=== PATIENT | female | born 1980 | race African-American/Black ===

== ENCOUNTER 2024-12-31 14:51 | Inpatient (IN) | payer OTHER ==
[~2024-12-31] VITALS: Ht 154.9 cm; Wt 61.0 kg
[2024-12-31] MEDS ORDERED: FLUC150T48 PO (16:52)
[2024-12-31 19:31] LABS: GLUCOMETER DEV NAME(LOC) ER.7; GLUCOSE,POINT OF CARE 140 MG/DL (70-110)
[2024-12-31] MEDS: SODIUM CHLORIDE 0.9% 1,000 ML IV ONE (19:49)
[2024-12-31] MEDS ORDERED: IBUP-1492 PO (19:57)
[2024-12-31 20:12] LABS: BASOPHILS % (AUTO) 0.1 % (0.0-2.0); EOSINOPHILS % (AUTO) 0 % (1.0-6.0); HEMATOCRIT 48.6 % (36-46); HEMOGLOBIN 15.9 g/dL (12.0-16.0); LYMPHOCYTES # (AUTO) 2.1 K/uL (1.0-4.8); MEAN CORPUSCULAR HEMOGLOBIN 28.3 pg (26.0-34.0); MEAN CORPUSCULAR HGB CONC 32.8 G/dL (31.0-37.0); MEAN CORPUSCULAR VOLUME 87 fL (80-100); MONOCYTES # (AUTO) 1.8 K/uL (0.1-1.0); MONOCYTES % (AUTO) 12.8 % (2.0-9.0); NEUTROPHILS # (AUTO) 9.9 K/uL (1.8-7.7); NEUTROPHILS % (AUTO) 72.1 % (40.0-70.0); PLATELET COUNT (AUTO) 304 K/uL (150-450); RED BLOOD CELL COUNT(AUTO) 5.61 MIL/uL (4.00-5.20); RED CELL DISTRIBUTION WIDTH 13.6 % (11.5-14.5); WHITE BLOOD COUNT (AUTO) 13.7 K/uL (4.5-11.0)
[2024-12-31 20:21] LABS: ALCOHOL, BLOOD (SERUM) < 3 mg/dL (0-10); COVID AG,FIA SOURCE NASAL SWAB
[2024-12-31 20:26] LABS: ANION GAP 16 mmol/L (8-16); CALCIUM, TOTAL 10.2 mg/dL (8.8-10.5); CARBON DIOXIDE 25 mmol/L (22-29); CHLORIDE 110 mmol/L (98-107); CREATININE 1.34 mg/dL (0.60-1.30); GLOMERULAR FILTR. RATE CALC 52 mL/min (>60); GLUCOSE,RANDOM 156 mg/dL (70-110); POTASSIUM 3.7 mmol/L (3.5-5.1); SODIUM SERUM 151 mmol/L (136-145); UREA NITROGEN, BLOOD 41 mg/dL (7-18)
[2024-12-31 20:40] LABS: SARS-COV2 (COVID) ANTIGEN,FIA Negative (Negative)
[2024-12-31] MEDS ORDERED: IPRATROPIUM BROMIDE 0.5 MG/2.5 ML NEB SOLUTION NEB PRN (21:00)
[2024-12-31] MEDS ORDERED: ACETAMINOPHEN 325 MG TABLET PO PRN (21:00)
[2024-12-31] MEDS ORDERED: ALBUTEROL SULFATE 2.5 MG/0.5 ML NEB SOLUTION NEB PRN (21:00)
[2024-12-31] MEDS ORDERED: ZOLPIDEM TARTRATE 5 MG TABLET PO PRN (21:00)
[2024-12-31] MEDS ORDERED: ONDANSETRON HCL 4 MG/2 ML VIAL IVP PRN (21:00)
[2024-12-31] MEDS ORDERED: BISACODYL 10 MG RECTAL RECTAL SUPPOSITORY PR PRN (21:00)
[2024-12-31] MEDS ORDERED: MAGNESIUM HYDROXIDE SUSPENSION 30 ML UDCUP PO PRN (21:00)
[2024-12-31] MEDS: DEXTROSE 5%-0.45% SODIUM CHL 1,000 ML IV ONE (21:12)
[2024-12-31] MEDS: HEPARIN SODIUM,PORCINE 5,000 UNITS/ML VIAL SQ SCH (23:26)
[2025-01-01] VITALS: BP 134/91; PULSE 132; RESP 22; TEMP 98.3; O2SAT 100
[2025-01-01 04:00] VITALS: BP 136/96; PULSE 144; RESP 21; TEMP 97.5; O2SAT 97
[2025-01-01 07:31] VITALS: BP 117/68; PULSE 144; RESP 18
[2025-01-01] MEDS: PANTOPRAZOLE SODIUM 40 MG DR TABLET PO SCH (08:12)
[2025-01-01 12:48] VITALS: BP 121/95; PULSE 138; RESP 18
[2025-01-01] MEDS: DEXTROSE 5%-WATER 1,000 ML IV ONE (13:47)
[2025-01-01] MEDS: LORazepam 2 MG/ML VIAL IVP PRN (13:48)
[2025-01-01 15:45] VITALS: BP 127/86; PULSE 119; RESP 19; TEMP 98.4; O2SAT 98
[2025-01-01 15:57] LABS: BASOPHILS % (AUTO) 0.2 % (0.0-2.0); EOSINOPHILS % (AUTO) 0.2 % (1.0-6.0); HEMATOCRIT 44.1 % (36-46); HEMOGLOBIN 14.5 g/dL (12.0-16.0); LYMPHOCYTES # (AUTO) 1.7 K/uL (1.0-4.8); LYMPHOCYTES % (AUTO) 17.6 % (22.0-44.0); MEAN CORPUSCULAR HEMOGLOBIN 28.6 pg (26.0-34.0); MEAN CORPUSCULAR HGB CONC 32.9 G/dL (31.0-37.0); MEAN CORPUSCULAR VOLUME 87 fL (80-100); MONOCYTES # (AUTO) 1.2 K/uL (0.1-1.0); NEUTROPHILS # (AUTO) 6.6 K/uL (1.8-7.7); PLATELET COUNT (AUTO) 248 K/uL (150-450); RED BLOOD CELL COUNT(AUTO) 5.09 MIL/uL (4.00-5.20); RED CELL DISTRIBUTION WIDTH 13.6 % (11.5-14.5); WHITE BLOOD COUNT (AUTO) 9.6 K/uL (4.5-11.0)
[2025-01-01] MEDS: THIAMINE 100 MG/ML 2 ML VIAL IVP SCH (16:10)
[2025-01-01 16:12] LABS: TROPONIN I-HIGH SENSITIVITY 28 ng/L (<51)
[2025-01-01 16:14] LABS: ANION GAP 11 mmol/L (8-16); CALCIUM, TOTAL 9.2 mg/dL (8.8-10.5); CARBON DIOXIDE 28 mmol/L (22-29); CHLORIDE 117 mmol/L (98-107); CREATININE 0.68 mg/dL (0.60-1.30); GLOMERULAR FILTR. RATE CALC > 60 mL/min (>60); GLUCOSE,RANDOM 143 mg/dL (70-110); POTASSIUM 3.3 mmol/L (3.5-5.1); SODIUM SERUM 156 mmol/L (136-145); UREA NITROGEN, BLOOD 22 mg/dL (7-18)
[2025-01-01] MEDS: POTASSIUM CHL 10 MEQ/WATER 50 ML IV SCH (17:56)
[2025-01-01 19:18] LABS: APPEARANCE,URINE CLEAR (CLEAR); BILIRUBIN,URINE NEGATIVE (NEGATIVE); COLOR,URINE LIGHT YELLOW (YELLOW); GLUCOSE, URINE (UA) NEGATIVE (NEGATIVE); LEUKOCYTE ESTERASE ,URINE NEGATIVE (NEGATIVE); NITRATE,URINE NEGATIVE (NEGATIVE); OCCULT BLOOD,URINE NEGATIVE (NEGATIVE); PH,URINE 5.5 (5.0-8.0); PH,URINE DRUG SCREEN 5.5 (5.0-8.0); PROTEIN,URINE 30-70 mg/dL (NEGATIVE); SPECIFIC GRAVITIY, URINE 1.019 (1.003-1.030); UROBILINOGEN,URINE <=1.0 mg/dL (<=1.0)
[2025-01-01 19:43] LABS: ALCOHOL, URINE DRUG SCREEN NEGATIVE (NEGATIVE); AMPHET/METH SCREEN,URINE NEGATIVE (NEGATIVE); BARBITURATE SCREEN, URINE NEGATIVE (NEGATIVE); BENZODIAZEPINES SCREEN,URINE NEGATIVE (NEGATIVE); CANNABINOID SCREEN,URINE NEGATIVE (NEGATIVE); COCAINE SCREEN,URINE NEGATIVE (NEGATIVE); METHADONE SCREEN, URINE NEGATIVE (NEGATIVE); OPIATE SCREEN,URINE NEGATIVE (NEGATIVE); PHENCYCLIDINE SCREEN,URINE NEGATIVE (NEGATIVE)
[2025-01-01 20:00] VITALS: BP 109/78; PULSE 118; RESP 18; TEMP 98.2; O2SAT 98
[2025-01-02] VITALS: BP 117/102; PULSE 126; RESP 18; O2SAT 97
[2025-01-02 03:34] VITALS: BP 115/98; PULSE 125; RESP 19; TEMP 97.9; O2SAT 98
[2025-01-02 07:38] VITALS: BP 116/78; PULSE 123; RESP 18; TEMP 97.9; O2SAT 95
[2025-01-02 10:06] LABS: ANION GAP 12 mmol/L (8-16); CALCIUM, TOTAL 9.3 mg/dL (8.8-10.5); CARBON DIOXIDE 30 mmol/L (22-29); CHLORIDE 115 mmol/L (98-107); CREATININE 0.73 mg/dL (0.60-1.30); GLOMERULAR FILTR. RATE CALC > 60 mL/min (>60); GLUCOSE,RANDOM 133 mg/dL (70-110); POTASSIUM 3.2 mmol/L (3.5-5.1); SODIUM SERUM 157 mmol/L (136-145); UREA NITROGEN, BLOOD 19 mg/dL (7-18)
[2025-01-02 11:02] LABS: BASOPHILS % (AUTO) 0.3 % (0.0-2.0); EOSINOPHILS % (AUTO) 0.2 % (1.0-6.0); HEMOGLOBIN 14.3 g/dL (12.0-16.0); LYMPHOCYTES # (AUTO) 1.6 K/uL (1.0-4.8); LYMPHOCYTES % (AUTO) 18.2 % (22.0-44.0); MEAN CORPUSCULAR HEMOGLOBIN 27.9 pg (26.0-34.0); MEAN CORPUSCULAR HGB CONC 32.5 G/dL (31.0-37.0); MEAN CORPUSCULAR VOLUME 86 fL (80-100); MONOCYTES # (AUTO) 1.1 K/uL (0.1-1.0); MONOCYTES % (AUTO) 12.3 % (2.0-9.0); PLATELET COUNT (AUTO) 257 K/uL (150-450); RED BLOOD CELL COUNT(AUTO) 5.13 MIL/uL (4.00-5.20); RED CELL DISTRIBUTION WIDTH 13.7 % (11.5-14.5); WHITE BLOOD COUNT (AUTO) 8.7 K/uL (4.5-11.0)
[2025-01-02] MEDS: POTASSIUM CHL 10 MEQ/WATER 50 ML IV PRN (11:09)
[2025-01-02] MEDS: DEXTROSE 5%-WATER 1,000 ML IV ONE (11:09)
[2025-01-02 11:17] VITALS: BP 116/86; PULSE 114; RESP 18; TEMP 97.6; O2SAT 97
[2025-01-02] MEDS: RisperiDONE 0.5 MG TABLET PO SCH (12:16)
[2025-01-02] MEDS: DiphenhydrAMINE HCL 50 MG/ML VIAL IM ONE (13:05)
[2025-01-02] MEDS: HALOPERIDOL LACTATE 5 MG/ML VIAL IM ONE (13:06)
[2025-01-02] MEDS: LORazepam 2 MG/ML VIAL IM ONE (13:06)
[2025-01-02 15:35] VITALS: BP 108/89; PULSE 117; RESP 18; TEMP 98.8; O2SAT 98
[2025-01-02 20:00] VITALS: BP 120/72; PULSE 122; RESP 18; TEMP 98.6; O2SAT 98
[2025-01-03] VITALS (7 sets, daily range): BP systolic 118–130; BP diastolic 75–100; PULSE 91–121; RESP 17–19; TEMP 97.5–98.4; O2SAT 97–100
[2025-01-03 06:32] LABS: BASOPHILS % (AUTO) 0.2 % (0.0-2.0); EOSINOPHILS % (AUTO) 0.6 % (1.0-6.0); HEMATOCRIT 43.7 % (36-46); HEMOGLOBIN 14.4 g/dL (12.0-16.0); LYMPHOCYTES # (AUTO) 2.4 K/uL (1.0-4.8); LYMPHOCYTES % (AUTO) 26.8 % (22.0-44.0); MEAN CORPUSCULAR HEMOGLOBIN 28.4 pg (26.0-34.0); MEAN CORPUSCULAR VOLUME 86 fL (80-100); MONOCYTES % (AUTO) 11.8 % (2.0-9.0); NEUTROPHILS # (AUTO) 5.3 K/uL (1.8-7.7); NEUTROPHILS % (AUTO) 60.6 % (40.0-70.0); PLATELET COUNT (AUTO) 229 K/uL (150-450); RED BLOOD CELL COUNT(AUTO) 5.08 MIL/uL (4.00-5.20); RED CELL DISTRIBUTION WIDTH 13.6 % (11.5-14.5); WHITE BLOOD COUNT (AUTO) 8.8 K/uL (4.5-11.0)
[2025-01-03 09:54] LABS: CHLORIDE 115 mmol/L (98-107); POTASSIUM 4.1 mmol/L (3.5-5.1); SODIUM SERUM 156 mmol/L (136-145)
[2025-01-03 10:02] LABS: ANION GAP 11 mmol/L (8-16); CALCIUM, TOTAL 9.7 mg/dL (8.8-10.5); CARBON DIOXIDE 30 mmol/L (22-29); CREATININE 0.68 mg/dL (0.60-1.30); GLOMERULAR FILTR. RATE CALC > 60 mL/min (>60); GLUCOSE,RANDOM 119 mg/dL (70-110); UREA NITROGEN, BLOOD 16 mg/dL (7-18)
[2025-01-03] MEDS: DEXTROSE 5%-WATER 1,000 ML IV ONE (11:24)
[2025-01-04 04:02] VITALS: BP 124/90; PULSE 108; RESP 18; TEMP 98.1; O2SAT 97
[2025-01-04 08:15] VITALS: BP 129/90; PULSE 114; RESP 18; TEMP 98.8; O2SAT 100
[2025-01-04 10:56] VITALS: BP 113/84; PULSE 115; RESP 18; TEMP 98; O2SAT 96
[2025-01-04] MEDS: DEXTROSE 5%-WATER 2,000 ML IV ONE (12:09)
[2025-01-04 15:15] VITALS: BP 108/73; PULSE 108; RESP 19; TEMP 98.6; O2SAT 97
[2025-01-04 20:00] VITALS: BP 116/76; PULSE 134; RESP 19; TEMP 97.9; O2SAT 97
[2025-01-04] MEDS ORDERED: 0.9% SODIUM CHLORIDE 10 ML SYRINGE IVP PRN (22:30)
[2025-01-04] MEDS ORDERED: DEXTROSE 5%-LACTATED RINGERS 1,000 ML IV SCH (23:00)
[2025-01-04 23:34] LABS: BASOPHILS % (AUTO) 0.3 % (0.0-2.0); EOSINOPHILS % (AUTO) 1.6 % (1.0-6.0); HEMATOCRIT 44.2 % (36-46); HEMOGLOBIN 14.3 g/dL (12.0-16.0); LYMPHOCYTES # (AUTO) 2.3 K/uL (1.0-4.8); LYMPHOCYTES % (AUTO) 30.5 % (22.0-44.0); MEAN CORPUSCULAR HEMOGLOBIN 27.8 pg (26.0-34.0); MEAN CORPUSCULAR HGB CONC 32.5 G/dL (31.0-37.0); MEAN CORPUSCULAR VOLUME 86 fL (80-100); MONOCYTES # (AUTO) 0.7 K/uL (0.1-1.0); MONOCYTES % (AUTO) 9.7 % (2.0-9.0); NEUTROPHILS # (AUTO) 4.4 K/uL (1.8-7.7); NEUTROPHILS % (AUTO) 57.9 % (40.0-70.0); PLATELET COUNT (AUTO) 226 K/uL (150-450); RED BLOOD CELL COUNT(AUTO) 5.16 MIL/uL (4.00-5.20); RED CELL DISTRIBUTION WIDTH 13.5 % (11.5-14.5); WHITE BLOOD COUNT (AUTO) 7.6 K/uL (4.5-11.0)
[2025-01-04 23:37] LABS: ANION GAP 12 mmol/L (8-16); CALCIUM, TOTAL 9.8 mg/dL (8.8-10.5); CARBON DIOXIDE 31 mmol/L (22-29); CHLORIDE 106 mmol/L (98-107); CREATININE 0.67 mg/dL (0.60-1.30); GLOMERULAR FILTR. RATE CALC > 60 mL/min (>60); GLUCOSE,RANDOM 119 mg/dL (70-110); POTASSIUM 3.5 mmol/L (3.5-5.1); SODIUM SERUM 149 mmol/L (136-145); UREA NITROGEN, BLOOD 14 mg/dL (7-18)
[2025-01-04 23:41] LABS: ALANINE AMINOTRANSFERASE 36 U/L (12-78); ALBUMIN 3.6 g/dL (3.4-5.0); ALKALINE PHOSPHATASE 69 U/L (46-116); ASPARTATE AMINOTRANSFERASE 25 U/L (15-37); BILIRUBIN,TOTAL 0.8 mg/dL (0.1-1.0); LACTATE DEHYDROGENASE 236 U/L (81-234); TOTAL PROTEIN, SERUM 7.5 g/dL (6.4-8.2)
[2025-01-04 23:48] LABS: LACTIC ACID 2.3 mmol/L (0.4-2.0)
[2025-01-05] MEDS: CefTRIAXone 1 GM/DEXTROSE 50 ML IV ONE (00:04)
[2025-01-05] MEDS: SODIUM CHLORIDE 0.9% 1,700 ML IV ONE (00:05)
[2025-01-05 00:26] VITALS: BP 108/91; PULSE 103; RESP 19; TEMP 98.2; O2SAT 98
[2025-01-05] MEDS: SODIUM CHLORIDE 0.9% 250 ML IV ONE (02:37)
[2025-01-05 04:00] VITALS: BP 98/56; PULSE 113; RESP 18; TEMP 97.9; O2SAT 100
[2025-01-05 07:22] LABS: BASOPHILS % (AUTO) 0.2 % (0.0-2.0); EOSINOPHILS % (AUTO) 2.8 % (1.0-6.0); HEMATOCRIT 39.9 % (36-46); HEMOGLOBIN 13.3 g/dL (12.0-16.0); LYMPHOCYTES # (AUTO) 2.3 K/uL (1.0-4.8); LYMPHOCYTES % (AUTO) 33.5 % (22.0-44.0); MEAN CORPUSCULAR HEMOGLOBIN 28.5 pg (26.0-34.0); MEAN CORPUSCULAR HGB CONC 33.3 G/dL (31.0-37.0); MEAN CORPUSCULAR VOLUME 86 fL (80-100); MONOCYTES # (AUTO) 0.8 K/uL (0.1-1.0); MONOCYTES % (AUTO) 11.3 % (2.0-9.0); NEUTROPHILS # (AUTO) 3.6 K/uL (1.8-7.7); NEUTROPHILS % (AUTO) 52.2 % (40.0-70.0); PLATELET COUNT (AUTO) 200 K/uL (150-450); RED BLOOD CELL COUNT(AUTO) 4.66 MIL/uL (4.00-5.20); RED CELL DISTRIBUTION WIDTH 13.5 % (11.5-14.5); WHITE BLOOD COUNT (AUTO) 6.9 K/uL (4.5-11.0)
[2025-01-05 07:30] LABS: ANION GAP 10 mmol/L (8-16); CALCIUM, TOTAL 8.7 mg/dL (8.8-10.5); CARBON DIOXIDE 30 mmol/L (22-29); CHLORIDE 109 mmol/L (98-107); CREATININE 0.67 mg/dL (0.60-1.30); GLOMERULAR FILTR. RATE CALC > 60 mL/min (>60); GLUCOSE,RANDOM 94 mg/dL (70-110); POTASSIUM 3.6 mmol/L (3.5-5.1); SODIUM SERUM 149 mmol/L (136-145); UREA NITROGEN, BLOOD 12 mg/dL (7-18)
[2025-01-05 12:00] VITALS: BP 123/83; PULSE 86; RESP 18; O2SAT 100
[2025-01-05 15:56] VITALS: BP 125/88; PULSE 112; RESP 18; TEMP 97.5; O2SAT 100
[2025-01-05 19:38] VITALS: BP 116/78; PULSE 102; RESP 18; TEMP 97.5; O2SAT 99
[2025-01-05] MEDS: RisperiDONE CONC 1 MG/ML SOLUTION ORAL.SYG PO SCH (20:54)
[2025-01-06 00:49] VITALS: BP 118/77; PULSE 102; RESP 18; TEMP 98.2; O2SAT 98
[2025-01-06 05:06] VITALS: BP 121/76; PULSE 99; RESP 18; TEMP 97.9; O2SAT 100
[2025-01-06 07:00] LABS: ANION GAP 11 mmol/L (8-16); CALCIUM, TOTAL 9.9 mg/dL (8.8-10.5); CARBON DIOXIDE 29 mmol/L (22-29); CHLORIDE 107 mmol/L (98-107); CREATININE 0.63 mg/dL (0.60-1.30); GLOMERULAR FILTR. RATE CALC > 60 mL/min (>60); GLUCOSE,RANDOM 93 mg/dL (70-110); POTASSIUM 3.4 mmol/L (3.5-5.1); SODIUM SERUM 147 mmol/L (136-145); UREA NITROGEN, BLOOD 11 mg/dL (7-18)
[2025-01-06] MEDS: POTASSIUM CHLORIDE 20 MEQ ER TABLET PO PRN (08:51)
[2025-01-06] MEDS ORDERED: SODIUM CHLORIDE 0.9% 500 ML IV ONE (09:21)
[2025-01-06 09:59] VITALS: BP 152/93; PULSE 127; RESP 18; TEMP 97.5; O2SAT 98
[2025-01-06] MEDS: POTASSIUM CHL 20 MEQ/0.45% NS 1,000 ML IV ONE (11:28)
[2025-01-06] MEDS: HALOPERIDOL LACTATE 5 MG/ML VIAL IM ONE (11:59)
[2025-01-06 16:40] VITALS: BP 128/97; PULSE 118; RESP 18; TEMP 97.5; O2SAT 99
[2025-01-06] MEDS ORDERED: 0.9% SODIUM CHLORIDE 10 ML SYRINGE IVP ONE (16:49)
[2025-01-06] MEDS ORDERED: IOHEXOL 300 MG/ML 100 ML VIAL ONE (16:49)
[2025-01-06] MEDS ORDERED: SODIUM CHLORIDE 0.9% 100 ML ONE (16:49)
[2025-01-06] MEDS: DEXTROSE 5%-WATER 1,000 ML IV ONE (17:53)
[2025-01-06 20:11] VITALS: BP 110/82; PULSE 109; RESP 18; TEMP 98.1; O2SAT 98
[2025-01-07] VITALS (7 sets, daily range): BP systolic 95–128; BP diastolic 66–86; PULSE 94–128; RESP 18–19; TEMP 97.3–98.1; O2SAT 94–100
[2025-01-07 12:27] LABS: ANION GAP 8 mmol/L (8-16); CARBON DIOXIDE 29 mmol/L (22-29); CHLORIDE 106 mmol/L (98-107); CREATININE 0.55 mg/dL (0.60-1.30); GLOMERULAR FILTR. RATE CALC > 60 mL/min (>60); GLUCOSE,RANDOM 108 mg/dL (70-110); POTASSIUM 3.8 mmol/L (3.5-5.1); SODIUM SERUM 143 mmol/L (136-145); UREA NITROGEN, BLOOD 9 mg/dL (7-18)
[2025-01-07] MEDS: DEXTROSE 5%-WATER 1,000 ML IV ONE (13:01)
[2025-01-08 04:18] VITALS: BP 107/85; PULSE 113; RESP 19; TEMP 98.2; O2SAT 97
[2025-01-08 07:59] VITALS: BP 115/89; PULSE 104; RESP 19; TEMP 97.5; O2SAT 99
[2025-01-08] MEDS: DEXTROSE 5%-0.45% SODIUM CHL 1,000 ML IV SCH (12:24)
[2025-01-08 20:10] VITALS: BP 123/78; PULSE 74; RESP 18; TEMP 98.4; O2SAT 97
[2025-01-09 04:55] VITALS: BP 123/79; PULSE 103; RESP 18; TEMP 97.7; O2SAT 98
[2025-01-09 07:59] LABS: ANION GAP 7 mmol/L (8-16); CARBON DIOXIDE 29 mmol/L (22-29); CHLORIDE 106 mmol/L (98-107); CREATININE 0.63 mg/dL (0.60-1.30); GLOMERULAR FILTR. RATE CALC > 60 mL/min (>60); GLUCOSE,RANDOM 116 mg/dL (70-110); POTASSIUM 3.8 mmol/L (3.5-5.1); SODIUM SERUM 142 mmol/L (136-145); UREA NITROGEN, BLOOD 6 mg/dL (7-18)
[2025-01-09 08:07] VITALS: BP 106/76; PULSE 110; RESP 20; TEMP 97.3; O2SAT 100
[2025-01-09] MEDS: MEGESTROL ACETATE 40 MG TABLET PO SCH (12:17)
[2025-01-09 20:05] VITALS: BP 106/74; PULSE 112; RESP 18; TEMP 97.9; O2SAT 99
[2025-01-10 06:33] VITALS: BP 96/60; PULSE 101; RESP 18; TEMP 98; O2SAT 98
[2025-01-10 07:49] LABS: ANION GAP 8 mmol/L (8-16); CARBON DIOXIDE 25 mmol/L (22-29); CHLORIDE 106 mmol/L (98-107); CREATININE 0.56 mg/dL (0.60-1.30); GLOMERULAR FILTR. RATE CALC > 60 mL/min (>60); GLUCOSE,RANDOM 121 mg/dL (70-110); POTASSIUM 3.6 mmol/L (3.5-5.1); SODIUM SERUM 139 mmol/L (136-145); UREA NITROGEN, BLOOD 6 mg/dL (7-18)
[2025-01-10 07:58] VITALS: BP 100/67; PULSE 94; RESP 18; TEMP 98.1; O2SAT 100
[2025-01-10] MEDS: HALOPERIDOL LACTATE 5 MG/ML VIAL IM ONE (12:38)
[2025-01-10] MEDS: LORazepam 2 MG/ML VIAL IM ONE (12:39)
[2025-01-10] MEDS: DiphenhydrAMINE HCL 50 MG/ML VIAL IM ONE (12:49)
[2025-01-10 19:20] VITALS: BP 113/76; PULSE 121; RESP 20; TEMP 98.6; O2SAT 99
[2025-01-11] MEDS: DEXTROSE 5%-0.45% SODIUM CHL 1,000 ML IV ONE (00:01)
[2025-01-11 05:04] VITALS: BP 106/73; PULSE 101; RESP 18; TEMP 97.7; O2SAT 100
[2025-01-11 08:24] LABS: ANION GAP 6 mmol/L (8-16); CALCIUM, TOTAL 8.7 mg/dL (8.8-10.5); CARBON DIOXIDE 27 mmol/L (22-29); CHLORIDE 106 mmol/L (98-107); CREATININE 0.65 mg/dL (0.60-1.30); GLOMERULAR FILTR. RATE CALC > 60 mL/min (>60); GLUCOSE,RANDOM 115 mg/dL (70-110); POTASSIUM 3.5 mmol/L (3.5-5.1); SODIUM SERUM 139 mmol/L (136-145); UREA NITROGEN, BLOOD 7 mg/dL (7-18)
[2025-01-11 08:28] VITALS: BP 96/66; PULSE 92; RESP 18; TEMP 98.3; O2SAT 98
[2025-01-11] MEDS: RisperiDONE CONC 1 MG/ML SOLUTION ORAL.SYG PO SCH (09:09)
[2025-01-11] MEDS: DiphenhydrAMINE HCL 50 MG/ML VIAL IM ONE (12:08)
[2025-01-11] MEDS: LORazepam 2 MG/ML VIAL IM ONE (12:09)
[2025-01-11] MEDS: HALOPERIDOL LACTATE 5 MG/ML VIAL IM ONE (12:10)
[2025-01-11 19:28] VITALS: BP 108/87; PULSE 107; RESP 18; TEMP 97.9; O2SAT 100
[2025-01-12 00:58] VITALS: BP 124/85; PULSE 81; RESP 18; TEMP 98.3; O2SAT 100
[2025-01-12 06:21] VITALS: BP 119/68; PULSE 100; RESP 18; TEMP 98.6; O2SAT 98
[2025-01-12 07:47] LABS: ANION GAP 7 mmol/L (8-16); CALCIUM, TOTAL 9.1 mg/dL (8.8-10.5); CARBON DIOXIDE 25 mmol/L (22-29); CHLORIDE 108 mmol/L (98-107); CREATININE 0.57 mg/dL (0.60-1.30); GLOMERULAR FILTR. RATE CALC > 60 mL/min (>60); GLUCOSE,RANDOM 97 mg/dL (70-110); SODIUM SERUM 140 mmol/L (136-145); UREA NITROGEN, BLOOD 6 mg/dL (7-18)
[2025-01-12 20:38] VITALS: BP 114/82; PULSE 79; RESP 18; TEMP 98.6; O2SAT 98
[2025-01-13 05:05] VITALS: BP 98/65; PULSE 99; RESP 19; TEMP 98.3; O2SAT 98
[2025-01-13 07:28] LABS: ANION GAP 11 mmol/L (8-16); CALCIUM, TOTAL 9.3 mg/dL (8.8-10.5); CARBON DIOXIDE 25 mmol/L (22-29); CHLORIDE 103 mmol/L (98-107); CREATININE 0.72 mg/dL (0.60-1.30); GLOMERULAR FILTR. RATE CALC > 60 mL/min (>60); GLUCOSE,RANDOM 104 mg/dL (70-110); POTASSIUM 3.9 mmol/L (3.5-5.1); SODIUM SERUM 139 mmol/L (136-145); UREA NITROGEN, BLOOD 6 mg/dL (7-18)
[2025-01-13 07:50] VITALS: BP 105/81; PULSE 113; RESP 20; TEMP 98.4; O2SAT 98
[2025-01-13 19:42] VITALS: BP 98/73; PULSE 105; RESP 18; TEMP 97.5; O2SAT 99
[2025-01-14 05:10] VITALS: BP 108/69; PULSE 112; RESP 18; TEMP 98.8; O2SAT 100
[2025-01-14 07:00] VITALS: BP 121/76; PULSE 115; RESP 19; TEMP 97.8; O2SAT 99
[2025-01-14 07:25] LABS: ANION GAP 8 mmol/L (8-16); CALCIUM, TOTAL 9.3 mg/dL (8.8-10.5); CARBON DIOXIDE 27 mmol/L (22-29); CHLORIDE 103 mmol/L (98-107); CREATININE 0.79 mg/dL (0.60-1.30); GLOMERULAR FILTR. RATE CALC > 60 mL/min (>60); GLUCOSE,RANDOM 102 mg/dL (70-110); POTASSIUM 4.2 mmol/L (3.5-5.1); SODIUM SERUM 138 mmol/L (136-145); UREA NITROGEN, BLOOD 4 mg/dL (7-18)
[2025-01-14 16:00] VITALS: BP 111/63; PULSE 106; RESP 16; TEMP 98; O2SAT 99
[2025-01-14] MEDS ORDERED: MEGE40TA33 PO (16:26)
[2025-01-14] MEDS ORDERED: RISP-32 PO (16:26)
[2025-01-14] MEDS ORDERED: THIA100T80 PO (16:27)
== END 2025-01-14 20:03 | DRG 640 ==
LOC: EMS 14:51 → EDH 20:51 → 5S 01-01 → 6S 01-08 10:25
PROVIDERS: ADMIT Hospitalist; ATTEND Hospitalist
DX: E86.0 Dehydration (principal); N17.0 Acute kidney failure with tubular necrosis; T73.0XXA Starvation, initial encounter; E87.0 Hyperosmolality and hypernatremia; Z20.822 Contact with and (suspected) exposure to COVID-19; D72.829 Elevated white blood cell count, unspecified; R00.0 Tachycardia, unspecified; F29 Unspecified psychosis not due to a substance or known physiological condition; F22 Delusional disorders; F41.9 Anxiety disorder, unspecified; X58.XXXA Exposure to other specified factors, initial encounter; Z79.899 Other long term (current) drug therapy; Z91.148 Patient's other noncompliance with medication regimen for other reason
CPT/HCPCS: 70450; 71045; 71275; 74018; 80048; 80053; 80307; 81003; 82962; 83605; 83615; 83735; 84132; 84145; 84484; 84703; 85025; 85379; 85730; 87040; 93005; 99285; G0378; G0480; J0696; J1200; J1630; J1644; J2060; J3411; J3480; J7030; J7040; J7050; J7060; Q9967; 36415-L1; 36415-TC